=== PATIENT | female | born 1990 | race Caucasian/White ===

== ENCOUNTER 2016-11-19 06:54 | Inpatient (IN) | payer SELFPAY ==
[2016-11-19] MEDS ORDERED: Nalbuphine 20 MG/1 ML Amp IVPUSH PRN (07:04)
[2016-11-19] MEDS ORDERED: Sodium Chloride 0.9% 10 ML Syringe FLUSH PRN (07:04)
[2016-11-19] MEDS ORDERED: Ondansetron 4 MG/2 ML SDV IVPUSH PRN (07:04)
--- NOTE | 2016-11-19 07:08 | PCM.LDHP ---
L&D History of Present Illness - General Date of Service: 11/19/16 Admit Problem/Dx: Patient Status Order with Admit Dx/Problem 11/19/16 07:05 Patient Status [ADT] Routine Admission Diagnosis/Problem Admission Diagnosis/Problem Normal Source of Information: Patient History Limitations: Reports: No Limitations - History of Present Illness Introduction:: Patient is a 26-year-old at 39-4/7 weeks gestation who presents for planned induction of labor. She was doing well today. No concerns or complaints. Getting good movement from baby. - Related Data Allergies/Adverse Reactions: Allergies Allergy/AdvReac Type Severity Reaction Status Date / Time sulfamethoxazole Allergy Hives Verified 11/19/16 07:46 [From ] trimethoprim [From ] Allergy Hives Verified 11/19/16 07:46 Past Medical History [employer] History: Reports: , Spontaneous : 6 Para: 3 LMP (Approximate): - Past Surgical History Endocrine Surgical History: Reports: Thyroid Biopsy Social & Family History - Tobacco Use Smoking Status *Q: Never Smoker - Alcohol Use Alcohol Use History: No - Recreational Drug Use Recreational Drug Use: No H&P Review of Systems - Review of Systems: Review Of Systems: See Below General: Reports: No Symptoms Pulmonary: Reports: No Symptoms Cardiovascular: Reports: No Symptoms Gastrointestinal: Reports: No Symptoms Genitourinary: Reports: No Symptoms Musculoskeletal: Reports: No Symptoms Neurological: Reports: No Symptoms L&D Exam - Exam Exam: See Below - OB Specific Contraction Intensity: Irritability Movement: Active Heart Tones: Present Heart Tones per Min: 145 Heart Rate (FHR) Variability: Moderate (6-25 bmp) Presentation: Vertex - Spencer Score Spencer Score Cervix Position: Midposition Spencer Score Consistency: Soft Spencer Score Effacement: 31-50% Spencer Score Dilation: 3-4 cm Spencer Score 's Station: -2 Spencer Score Total: 7 - Exam General: Alert, Oriented, Cooperative Lungs: Clear to Auscultation, Normal Respiratory Effort Cardiovascular: Regular Rate, Regular Rhythm GI/Abdominal Exam: Soft, Non-Tender Genitourinary: Normal external exam Extremities: Normal Inspection Skin: Warm, Dry, Intact - Patient Data Result Diagrams: 11/19/16 07:19 - Problem List (1) 39 weeks gestation of SNOMED Code(s): 08757230 ICD Code: Z3A.39 - 39 WEEKS GESTATION OF Status: Acute Current Visit: Yes (2) Elective induction of labor planned SNOMED Code(s): 310830006 ICD Code: CSO0082 - Status: Acute Current Visit: Yes (3) GBS (group B Streptococcus carrier), +RV culture, currently SNOMED Code(s): 39729402, 334179591 ICD Code: O99.820 - STREPTOCOCCUS B CARRIER STATE COMPLICATING Status: Acute Current Visit: Yes Problem List Initiated/Reviewed/Updated: Yes Orders Last 24hrs: Active Orders 24 hr Category Date Time Status Patient Status [ADT] Routine ADT 11/19/16 07:05 Ordered Activity as Tolerated [RC] PFP Care 11/19/16 07:05 Ordered Communication Order [RC] ASDIRECTED Care 11/19/16 07:05 Ordered Heart Tones [RC] ASDIRECTED Care 11/19/16 07:05 Ordered Notify Provider [RC] PFP Care 11/19/16 07:05 Ordered Notify Provider [RC] PRN Care 11/19/16 07:05 Ordered Peripheral IV Care [RC] . DIRECTED Care 11/19/16 07:05 Ordered Vital Signs [RC] PER UNIT ROUTINE Care 11/19/16 07:05 Ordered Regular Diet [DIET] Diet 11/19/16 Breakfast Ordered CBC W/O DIFF,HEMOGRAM [HEME] Routine Lab 11/19/16 07:04 Ordered TYPE AND SCREEN [BBK] Routine Lab 11/19/16 07:04 Ordered Ampicillin 1 gm Med 11/19/16 07:15 Ordered Sodium Chloride 0.9% [Normal Saline] 100 ml IV Q4H Ampicillin 2 gm Med 11/19/16 07:04 Ordered Sodium Chloride 0.9% [Normal Saline] 100 ml IV ONETIME Lactated Ringers [Ringers, Lactated] 1,000 ml Med 11/19/16 07:15 Ordered IV ASDIRECTED Nalbuphine [Nubain] Med 11/19/16 07:04 Ordered 10 mg IVPUSH Q2H PRN Ondansetron [Zofran] Med 11/19/16 07:04 Ordered 4 mg IVPUSH Q4H PRN Oxytocin/Lactated Ringers [Pitocin in LR 10 Units/1,000 Med 11/19/16 07:15 Ordered ML] 10 unit in 1,000 ml IV .CONTINUOUS Oxytocin/Lactated Ringers [Pitocin in LR 10 Units/1,000 Med 11/19/16 07:15 Ordered ML] 10 unit in 1,000 ml IV TITRATE Sodium Chloride 0.9% [Saline Flush] Med 11/19/16 07:04 Ordered 10 ml FLUSH ASDIRECTED PRN Electronic Heart Tones Ext w TOCO [WOMSER] Ot 11/19/16 07:05 Ordered Routine Electronic Heart Tones Internal [WOMSER] Per Unit Ot 11/19/16 07:05 Ordered Routine Peripheral IV Insertion Adult [OM.PC] Routine Ot 11/19/16 07:05 Ordered Resuscitation Status Routine Resus Stat 11/19/16 07:04 Ordered Medication Orders Ampicillin Sodium 2 gm/ Sodium (Chloride) 100 mls @ 200 mls/hr IV ONETIME ONE Stop: 11/19/16 07:33 Ampicillin Sodium 1 gm/ Sodium (Chloride) 100 mls @ 200 mls/hr IV Q4H KOREY Lactated Ringer's (Ringers, Lactated) 1,000 mls @ 40 mls/hr IV ASDIRECTED KOREY Nalbuphine HCl (Nubain) 10 mg IVPUSH Q2H PRN PRN Reason: Pain (moderate 4-6) Assessment/Plan Comment:: 26-year-old at 39-4/7 weeks gestation presents for elective induction of labor * CBC and type and screen * GBS positive, will start ampicillin * Pitocin for induction and eventually AROM * Desires epidural for pain control * Anticipate
[2016-11-19] MEDS ORDERED: Oxytocin/Lactated Ringers 10 UNIT/1,000 ML BAG IV SCH ×2 (07:15)
[2016-11-19] MEDS ORDERED: Ampicillin 2 GM in Sodium Chloride 0.9% 100 ML IV ONE (08:00)
[2016-11-19] MEDS: Lactated Ringers 1,000 ML IV SCH ×4 (08:22→13:48)
[2016-11-19] MEDS ORDERED: diphenhydrAMINE 50 MG/ML SDV IVPUSH PRN (10:55)
[2016-11-19] MEDS ORDERED: fentaNYL 100 MCG/2 ML SDV EPIDUR PRN (10:55)
[2016-11-19] MEDS ORDERED: ePHEDrine 50 MG/ML SDV IVPUSH PRN (10:55)
[2016-11-19] MEDS ORDERED: Bupivacaine/fentaNYL/NS 100 ML Bag EPIDUR SCH (11:00)
--- NOTE | 2016-11-19 11:29 | PCM.PREANE ---
Preanesthetic Assessment - Anesthesia/Transfusion/Family Hx Anesthesia History: Prior Anesthesia Without Reaction Family History of Anesthesia Reaction: No Transfusion History: No Prior Transfusion(s) - Review of Systems General: No Symptoms Pulmonary: No Symptoms Cardiovascular: No Symptoms Gastrointestinal: No Symptoms Neurological: No Symptoms Other: Reports: None - Physical Assessment Pulse: 79 O2 Sat by Pulse Oximetry: 97 Respiratory Rate: 16 Blood Pressure: 111/79 Temperature: 36.8 C Vital Signs: Last Vital Signs Temp 36.7 C 11/19/16 07:45 Pulse 97 11/19/16 07:45 Resp 16 11/19/16 07:45 BP 109/71 11/19/16 07:45 Pulse Ox 97 11/19/16 07:45 Height: 1.7 m Weight: 89.584 kg ASA Class: 2 Mental Status: Alert & Oriented x3 Airway Class: Mallampati = 1 Dentition: Reports: Normal Dentition Thyro-Mental Finger Breadths: 3 Mouth Opening Finger Breadths: 3 ROM/Head Extension: Full Lungs: Clear to Auscultation, Normal Respiratory Effort Cardiovascular: Regular Rate, Regular Rhythm, No Murmurs - Lab Values: Laboratory Last Values WBC 8.90 K/mm3 (3.98-10.04) 11/19/16 07:19 RBC 3.95 M/mm3 (3.98-5.22) L 11/19/16 07:19 Hgb 11.2 gm/L (11.2-15.7) 11/19/16 07:19 Hct 34.2 % (34.1-44.9) 11/19/16 07:19 MCV 86.6 fl (79.4-94.8) 11/19/16 07:19 MCH 28.4 pg (25.6-32.2) 11/19/16 07:19 MCHC 32.7 g/dl (32.2-35.5) 11/19/16 07:19 RDW Std Deviation 43.8 fL (36.4-46.3) 11/19/16 07:19 Plt Count 158 K/mm3 (182-369) L 11/19/16 07:19 MPV 12.1 fl (9.4-12.3) 11/19/16 07:19 Blood Type A POSITIVE 11/19/16 07:19 Gel Antibody Screen Negative 11/19/16 07:19 - Allergies Allergies/Adverse Reactions: Allergies Allergy/AdvReac Type Severity Reaction Status Date / Time sulfamethoxazole Allergy Hives Verified 11/19/16 07:46 [From ] trimethoprim [From ] Allergy Hives Verified 11/19/16 07:46 - Anesthesia Plan Pre-Op Medication Ordered: None - Acknowledgements Anesthesia Type Planned: Epidural Pt an Appropriate Candidate for the Planned Anesthesia: Yes Alternatives and Risks of Anesthesia Discussed w Pt/Guardian: Yes Pt/Guardian Understands and Agrees with Anesthesia Plan: Yes PreAnesthesia Questionnaire Gastrointestinal History: Reports: [employer]SEM[employer] 1ST SHIFT History: Reports: , Spontaneous Psychiatric History: Reports: Anxiety, Depression - Past Surgical History Endocrine Surgical History: Reports: Thyroid Biopsy - SUBSTANCE USE Smoking Status *Q: Never Smoker Recreational Drug Use History: No - HOME MEDS Home Medications: Home Meds . [No Known Home Meds] 11/19/16 [History] - CURRENT (IN HOUSE) MEDS Current Meds: Current Medications Diphenhydramine HCl (Benadryl) 25 mg IVPUSH Q6H PRN PRN Reason: Itching Ephedrine Sulfate (Ephedrine Sulfate) 5 mg IVPUSH ASDIRECTED PRN PRN Reason: HYPOTENTSION Fentanyl (Sublimaze) 100 mcg EPIDUR Q3H PRN PRN Reason: PAIN Last Admin: 11/19/16 11:21 Dose: 100 mcg Fentanyl/Bupivacaine HCl (Fentanyl/Bupivacaine/Ns 2 Mcg-0.125% 100 Ml) 100 ml EPIDUR ASDIRECTED KOREY Last Admin: 11/19/16 11:22 Dose: 100 ml Ampicillin Sodium 1 gm/ Sodium (Chloride) 100 mls @ 200 mls/hr IV Q4H KOREY Lactated Ringer's (Ringers, Lactated) 1,000 mls @ 40 mls/hr IV ASDIRECTED KOREY Last Admin: 11/19/16 10:48 Dose: 40 mls/hr Oxytocin/Lactated Ringer's (Pitocin In Lr 10 Units/1,000 Ml) 10 unit in 1,000 mls @ 500 mls/hr IV .CONTINUOUS KOREY Oxytocin/Lactated Ringer's (Pitocin In Lr 10 Units/1,000 Ml) 10 unit in 1,000 mls @ 12 mls/hr IV TITRATE KOREY; 2 MUNITS/MIN PRN Reason: Protocol Last Titration: 11/19/16 09:45 Dose: 6 munits/min, 36 mls/hr Nalbuphine HCl (Nubain) 10 mg IVPUSH Q2H PRN PRN Reason: Pain (moderate 4-6) Ondansetron HCl (Zofran) 4 mg IVPUSH Q4H PRN PRN Reason: Nausea/Vomiting Sodium Chloride (Saline Flush) 10 ml FLUSH ASDIRECTED PRN PRN Reason: Keep Vein Open Discontinued Medications Ampicillin Sodium 2 gm/ Sodium (Chloride) 100 mls @ 200 mls/hr IV ONETIME ONE Stop: 11/19/16 08:29 Last Admin: 11/19/16 08:22 Dose: 200 mls/hr
[2016-11-19] MEDS: Ampicillin 1 GM in Sodium Chloride 0.9% 100 ML IV SCH ×2 (11:54→15:54)
--- NOTE | 2016-11-19 12:06 | PCM.PNLD ---
Labor Progress Note - VS & Meds Vital Signs: Last Vital Signs Temp 36.8 C 11/19/16 11:29 Pulse 79 11/19/16 11:29 Resp 16 11/19/16 11:29 BP 111/79 11/19/16 11:29 Pulse Ox 97 11/19/16 11:29 Active Medications: Current Medications Diphenhydramine HCl (Benadryl) 25 mg IVPUSH Q6H PRN PRN Reason: Itching Ephedrine Sulfate (Ephedrine Sulfate) 5 mg IVPUSH ASDIRECTED PRN PRN Reason: HYPOTENTSION Fentanyl (Sublimaze) 100 mcg EPIDUR Q3H PRN PRN Reason: PAIN Last Admin: 11/19/16 11:21 Dose: 100 mcg Fentanyl/Bupivacaine HCl (Fentanyl/Bupivacaine/Ns 2 Mcg-0.125% 100 Ml) 100 ml EPIDUR ASDIRECTED KOREY Last Admin: 11/19/16 11:22 Dose: 100 ml Ampicillin Sodium 1 gm/ Sodium (Chloride) 100 mls @ 200 mls/hr IV Q4H KOREY Last Admin: 11/19/16 11:54 Dose: 200 mls/hr Lactated Ringer's (Ringers, Lactated) 1,000 mls @ 40 mls/hr IV ASDIRECTED KOREY Last Admin: 11/19/16 11:34 Dose: 999 mls/hr Oxytocin/Lactated Ringer's (Pitocin In Lr 10 Units/1,000 Ml) 10 unit in 1,000 mls @ 500 mls/hr IV .CONTINUOUS KOREY Oxytocin/Lactated Ringer's (Pitocin In Lr 10 Units/1,000 Ml) 10 unit in 1,000 mls @ 12 mls/hr IV TITRATE KOREY; 2 MUNITS/MIN PRN Reason: Protocol Last Titration: 11/19/16 09:45 Dose: 6 munits/min, 36 mls/hr Nalbuphine HCl (Nubain) 10 mg IVPUSH Q2H PRN PRN Reason: Pain (moderate 4-6) Ondansetron HCl (Zofran) 4 mg IVPUSH Q4H PRN PRN Reason: Nausea/Vomiting Sodium Chloride (Saline Flush) 10 ml FLUSH ASDIRECTED PRN PRN Reason: Keep Vein Open Discontinued Medications Ampicillin Sodium 2 gm/ Sodium (Chloride) 100 mls @ 200 mls/hr IV ONETIME ONE Stop: 11/19/16 08:29 Last Admin: 11/19/16 08:22 Dose: 200 mls/hr - Uterine Contractions Uterine Monitoring Mode: External [place] Contraction Intensity: Moderate - Monitoring Monitor Mode: External Ultrasound Heart Rate (FHR) Baseline: 135 Heart Rate (FHR) Variability: Moderate (6-25 bmp) Accelerations: Present, 15x15 Decelerations: None Strip Review: Category I - Vaginal Exam Dilation (cm): 4-5 Effacement (Percent): 50 Station: -2 Cervical Position: Midposition - Labor Progress (Free Text) Labor Progress: Patient doing well. Comfortable with epidural. Pitocin at 8. 2nd antibiotic just hung. AROM performed with release of clear fluid. Continue present management.
--- NOTE | 2016-11-19 17:28 | PCM.DEL ---
L & D Note - General Info Date of Service: 11/19/16 - Delivery Note Labor: Induced by ARM, Induced by Oxytocin Delivery Outcome: Livebirth Infant Delivery Method: Spontaneous Vaginal Delivery Infant Delivery Mode: Spontaneous Presentation: Right Occiput Anterior (CHANTEL) Nuchal Cord: Present (x2), Reduced Anesthesia Type: Epidural Amniotic Fluid Description: Clear Episiotomy Type: None Laceration: None Placenta: Intact, Spontaneous Cord: 3 Vessels Estimated Blood Loss: 250 Resuscitation Needed: Yes : Bulb Syringe, Stimulated, Warmed, [place] Used, Warmer Used Score 1 min: 8 Score 5 min: 9 Delivery Comments (Free Text/Narrative):: Patient found to be complete and began pushing. With maternal pushing effort head delivered from CHANTEL presentation. Nuchal cord present x2 and reduced. With gentle downward traction the shoulders and body delivered. placed on maternal abdomen. Cord clamped and cut. Cord blood obtained. Placenta allowed time to separate and then spontaneously expelled. Inspection of the perineum showed no lacerations - Patient Data Vitals - Most Recent: Last Vital Signs Temp 36.8 C 11/19/16 11:29 Pulse 79 11/19/16 11:29 Resp 16 11/19/16 11:29 BP 111/79 11/19/16 11:29 Pulse Ox 97 11/19/16 11:29 Weight - Most Recent: 89.584 kg Lab Results Last 24 Hours: Laboratory Results - last 24 hr 11/19/16 11/19/16 Range/Units 07:19 07:19 WBC 8.90 (3.98-10.04) K/mm3 RBC 3.95 L (3.98-5.22) M/mm3 Hgb 11.2 (11.2-15.7) gm/L Hct 34.2 (34.1-44.9) % MCV 86.6 (79.4-94.8) fl MCH 28.4 (25.6-32.2) pg MCHC 32.7 (32.2-35.5) g/dl RDW Std Deviation 43.8 (36.4-46.3) fL Plt Count 158 L (182-369) K/mm3 MPV 12.1 (9.4-12.3) fl Blood Type A POSITIVE Gel Antibody Screen Negative Med Orders - Current: Current Medications Diphenhydramine HCl (Benadryl) 25 mg IVPUSH Q6H PRN PRN Reason: Itching Ephedrine Sulfate (Ephedrine Sulfate) 5 mg IVPUSH ASDIRECTED PRN PRN Reason: HYPOTENTSION Fentanyl (Sublimaze) 100 mcg EPIDUR Q3H PRN PRN Reason: PAIN Last Admin: 11/19/16 11:21 Dose: 100 mcg Fentanyl/Bupivacaine HCl (Fentanyl/Bupivacaine/Ns 2 Mcg-0.125% 100 Ml) 100 ml EPIDUR ASDIRECTED KOREY Last Admin: 11/19/16 11:22 Dose: 100 ml Ampicillin Sodium 1 gm/ Sodium (Chloride) 100 mls @ 200 mls/hr IV Q4H KOREY Last Admin: 11/19/16 15:54 Dose: 200 mls/hr Lactated Ringer's (Ringers, Lactated) 1,000 mls @ 40 mls/hr IV ASDIRECTED KOREY Last Admin: 11/19/16 13:48 Dose: 999 mls/hr Oxytocin/Lactated Ringer's (Pitocin In Lr 10 Units/1,000 Ml) 10 unit in 1,000 mls @ 500 mls/hr IV .CONTINUOUS KOREY Oxytocin/Lactated Ringer's (Pitocin In Lr 10 Units/1,000 Ml) 10 unit in 1,000 mls @ 12 mls/hr IV TITRATE KOREY; 2 MUNITS/MIN PRN Reason: Protocol Last Titration: 11/19/16 14:45 Dose: 10 munits/min, 60 mls/hr Nalbuphine HCl (Nubain) 10 mg IVPUSH Q2H PRN PRN Reason: Pain (moderate 4-6) Ondansetron HCl (Zofran) 4 mg IVPUSH Q4H PRN PRN Reason: Nausea/Vomiting Last Admin: 11/19/16 12:45 Dose: 4 mg Sodium Chloride (Saline Flush) 10 ml FLUSH ASDIRECTED PRN PRN Reason: Keep Vein Open Discontinued Medications Ampicillin Sodium 2 gm/ Sodium (Chloride) 100 mls @ 200 mls/hr IV ONETIME ONE Stop: 11/19/16 08:29 Last Admin: 11/19/16 08:22 Dose: 200 mls/hr - Problem List & Annotations (1) 39 weeks gestation of SNOMED Code(s): 52164202 Code(s): Z3A.39 - 39 WEEKS GESTATION OF Status: Acute Current Visit: Yes (2) Elective induction of labor planned SNOMED Code(s): 104172773 Code(s): NOW0446 - Status: Acute Current Visit: Yes (3) GBS (group B Streptococcus carrier), +RV culture, currently SNOMED Code(s): 97886162, 128819774 Code(s): O99.820 - STREPTOCOCCUS B CARRIER STATE COMPLICATING Status: Acute Current Visit: Yes (4) Vaginal delivery SNOMED Code(s): 831048277 Code(s): O80 - ENCOUNTER FOR FULL-TERM UNCOMPLICATED DELIVERY Status: Acute Current Visit: Yes - Problem List Review Problem List Initiated/Reviewed/Updated: Yes - My Orders Last 24 Hours: My Active Orders 11/19/16 07:04 Nalbuphine [Nubain] 10 mg IVPUSH Q2H PRN Ondansetron [Zofran] 4 mg IVPUSH Q4H PRN Sodium Chloride 0.9% [Saline Flush] 10 ml FLUSH ASDIRECTED PRN Resuscitation Status Routine 11/19/16 07:05 Patient Status [ADT] Routine Activity as Tolerated [RC] PFP Communication Order [RC] ASDIRECTED Heart Tones [RC] ASDIRECTED Notify Provider [RC] PFP Notify Provider [RC] PRN Peripheral IV Care [RC] . DIRECTED Vital Signs [RC] PER UNIT ROUTINE Electronic Heart Tones Ext w TOCO [WOMSER] Routine Electronic Heart Tones Internal [WOMSER] Per Unit Routine Peripheral IV Insertion Adult [OM.PC] Routine 11/19/16 07:15 Lactated Ringers [Ringers, Lactated] 1,000 ml IV ASDIRECTED Oxytocin/Lactated Ringers [Pitocin in LR 10 Units/1,000 ML] 10 unit in 1,000 ml IV .CONTINUOUS Oxytocin/Lactated Ringers [Pitocin in LR 10 Units/1,000 ML] 10 unit in 1,000 ml IV TITRATE 11/19/16 07:19 PATIENT RETYPE [BBK] Routine TYPE AND SCREEN [BBK] Routine 11/19/16 12:00 Ampicillin 1 gm Sodium Chloride 0.9% [Normal Saline] 100 ml IV Q4H 11/19/16 Breakfast Regular Diet [DIET] - Assessment Assessment:: 26-year-old G6 now P3124 PPD#0 from at 39-4/7 weeks gestation - Plan Plan:: * Routine cares * Encourage breast feeding * Discharge home in 1-2 days
[2016-11-19] MEDS ORDERED: Lanolin 100% Cream 7 GM Tube TOP PRN (17:46)
[2016-11-19] MEDS ORDERED: Acetaminophen 325 MG Tab PO PRN (17:46)
[2016-11-19] MEDS ORDERED: Witch Hazel Medicated Pads 100/Jar TOP PRN (17:46)
[2016-11-19] MEDS ORDERED: Docusate Sodium 100 MG Cap PO PRN (17:46)
[2016-11-19] MEDS ORDERED: Benzocaine/Menthol 20%-0.5% Spray 56 GM Canister TOP PRN (17:46)
[2016-11-19] MEDS: Ibuprofen 600 MG Tab PO PRN (18:48)
[2016-11-19] MEDS: Sertraline 50 MG Tab PO SCH (21:03)
[2016-11-19] MEDS ORDERED: Bupivacaine 0.25% 10 ML SDV ONE (22:22)
[2016-11-20] MEDS: Ibuprofen 600 MG Tab PO PRN ×2 (01:00→08:18)
--- NOTE | 2016-11-20 03:31 | PCM.DCSUM1 ---
Discharge Summary - Discharge Data Discharge Date: 11/20/16 Discharge Disposition: Home, Self-Care 01 Condition: Good - Discharge Diagnosis/Problem(s) (1) 39 weeks gestation of SNOMED Code(s): 64798782 ICD Code: Z3A.39 - 39 WEEKS GESTATION OF Status: Acute Current Visit: Yes (2) Elective induction of labor planned SNOMED Code(s): 474018551 ICD Code: GLO8811 - Status: Acute Current Visit: Yes (3) GBS (group B Streptococcus carrier), +RV culture, currently SNOMED Code(s): 89320198, 055113565 ICD Code: O99.820 - STREPTOCOCCUS B CARRIER STATE COMPLICATING Status: Acute Current Visit: Yes (4) Vaginal delivery SNOMED Code(s): 584422407 ICD Code: O80 - ENCOUNTER FOR FULL-TERM UNCOMPLICATED DELIVERY Status: Acute Current Visit: Yes - Patient Summary/Data Complications: None Consults: None Recommended Follow-up Testing/Procedures: Follow up with Dr. Murray in 5-6 weeks. Hospital Course: 26 y/o at 39 4/7 wks who presented for elective IOL. This was done with pitocin and eventual AROM. She progressed well to complete dilation and underwent an uncomplicated . See delivery note for full details. she did well and was meeting all goals by PPD#1. She requested discharge home and the was felt to be reasonable. - Patient Instructions Diet: Regular Diet as Tolerated Activity: As Tolerated Activity, Other: Pelvic Rest for 6 weeks Driving: May Drive Today Showering/Bathing: May Shower Showering/Bathing, Other: May Bathe Notify Provider of: Fever, Increased Pain, Swelling and Redness, Drainage, Nausea and/or Vomiting - Discharge Plan Home Medications: Home Meds Docusate Sodium [Colace] 100 mg PO BID PRN cap 11/20/16 [Rx] Ibuprofen [IJD: Ibuprofen] 600 mg PO Q6H PRN tablet 11/20/16 [Rx] Sertraline [Zoloft] 50 mg PO BEDTIME tablet 11/20/16 [Rx] Patient Handouts: Mastitis, [id number], Breast Pumping Tips, Depression and Baby Blues, Home Care Instructions for Mom, Breast Engorgement Referrals: Yaneth Murray MD [Physician] - (5-6 weeks for check ) - Discharge Summary/Plan Comment DC Time >30 min.: No - Patient Data Vitals - Most Recent: Last Vital Signs Temp 36.2 C 11/19/16 20:25 Pulse 84 11/19/16 20:25 Resp 15 11/19/16 20:25 BP 104/60 11/19/16 20:25 Pulse Ox 99 11/19/16 20:25 Weight - Most Recent: 89.584 kg I&O - Last 24 hours: Intake & Output 11/19/16 11/19/16 11/20/16 14:59 22:59 06:59 Intake Total 5200 Balance 5200 Lab Results - Last 24 hrs: Laboratory Results - last 24 hr 11/19/16 11/19/16 Range/Units 07:19 07:19 WBC 8.90 (3.98-10.04) K/mm3 RBC 3.95 L (3.98-5.22) M/mm3 Hgb 11.2 (11.2-15.7) gm/L Hct 34.2 (34.1-44.9) % MCV 86.6 (79.4-94.8) fl MCH 28.4 (25.6-32.2) pg MCHC 32.7 (32.2-35.5) g/dl RDW Std Deviation 43.8 (36.4-46.3) fL Plt Count 158 L (182-369) K/mm3 MPV 12.1 (9.4-12.3) fl Blood Type A POSITIVE Gel Antibody Screen Negative Med Orders - Current: Current Medications Acetaminophen (Tylenol) 650 mg PO Q4H PRN PRN Reason: mild pain or fever Benzocaine/Menthol (Dermoplast Pain Relief [place]) 0 gm TOP ASDIRECTED PRN PRN Reason: Perineal Comfort Measure Docusate Sodium (Colace) 100 mg PO BID PRN PRN Reason: Constipation Emollient Ointment (Lansinoh Hpa) 0 gm TOP ASDIRECTED PRN PRN Reason: Sore Nipples Ibuprofen (Motrin) 600 mg PO Q6H PRN PRN Reason: Mild pain or fever Last Admin: 11/20/16 01:00 Dose: 600 mg Sertraline HCl (Zoloft) 50 mg PO BEDTIME KOREY Last Admin: 11/19/16 21:03 Dose: Not Given Shawanda Collins (Tucks) 1 pad TOP ASDIRECTED PRN PRN Reason: Hemorrhoid pain Discontinued Medications Diphenhydramine HCl (Benadryl) 25 mg IVPUSH Q6H PRN PRN Reason: Itching Ephedrine Sulfate (Ephedrine Sulfate) 5 mg IVPUSH ASDIRECTED PRN PRN Reason: HYPOTENTSION Fentanyl (Sublimaze) 100 mcg EPIDUR Q3H PRN PRN Reason: PAIN Last Admin: 11/19/16 11:21 Dose: 100 mcg Fentanyl/Bupivacaine HCl (Fentanyl/Bupivacaine/Ns 2 Mcg-0.125% 100 Ml) 100 ml EPIDUR ASDIRECTED KOREY Last Admin: 11/19/16 11:22 Dose: 100 ml Ampicillin Sodium 2 gm/ Sodium (Chloride) 100 mls @ 200 mls/hr IV ONETIME ONE Stop: 11/19/16 08:29 Last Admin: 11/19/16 08:22 Dose: 200 mls/hr Ampicillin Sodium 1 gm/ Sodium (Chloride) 100 mls @ 200 mls/hr IV Q4H KOREY Last Admin: 11/19/16 15:54 Dose: 200 mls/hr Lactated Ringer's (Ringers, Lactated) 1,000 mls @ 40 mls/hr IV ASDIRECTED KOREY Last Admin: 11/19/16 13:48 Dose: 999 mls/hr Oxytocin/Lactated Ringer's (Pitocin In Lr 10 Units/1,000 Ml) 10 unit in 1,000 mls @ 500 mls/hr IV .CONTINUOUS KOREY Oxytocin/Lactated Ringer's (Pitocin In Lr 10 Units/1,000 Ml) 10 unit in 1,000 mls @ 12 mls/hr IV TITRATE KOREY; 2 MUNITS/MIN PRN Reason: Protocol Last Titration: 11/19/16 14:45 Dose: 10 munits/min, 60 mls/hr Nalbuphine HCl (Nubain) 10 mg IVPUSH Q2H PRN PRN Reason: Pain (moderate 4-6) Ondansetron HCl (Zofran) 4 mg IVPUSH Q4H PRN PRN Reason: Nausea/Vomiting Last Admin: 11/19/16 12:45 Dose: 4 mg Sodium Chloride (Saline Flush) 10 ml FLUSH ASDIRECTED PRN PRN Reason: Keep Vein Open *Q Meaningful Use (DIS) - VTE *Q VTE Criteria *Q: - Stroke *Q Stroke Criteria *Q: - AMI *Q AMI Criteria *Q:
--- NOTE | 2016-11-20 03:31 | PCM.PNPP ---
- General Info Date of Service: 11/20/16 Functional Status: Reports: Pain Controlled, Tolerating Diet, Ambulating, Urinating - Review of Systems General: Reports: No Symptoms Pulmonary: Reports: No Symptoms Cardiovascular: Reports: No Symptoms Gastrointestinal: Reports: No Symptoms Genitourinary: Reports: No Symptoms - Patient Data Vital Signs - Most Recent: Last Vital Signs Temp 36.2 C 11/19/16 20:25 Pulse 84 11/19/16 20:25 Resp 15 11/19/16 20:25 BP 104/60 11/19/16 20:25 Pulse Ox 99 11/19/16 20:25 Weight - Most Recent: 89.584 kg I&O - Last 24 Hours: Intake & Output 11/19/16 11/19/16 11/20/16 14:59 22:59 06:59 Intake Total 5200 Balance 5200 Lab Results - Last 24 Hours: Laboratory Results - last 24 hr 11/19/16 11/19/16 Range/Units 07:19 07:19 WBC 8.90 (3.98-10.04) K/mm3 RBC 3.95 L (3.98-5.22) M/mm3 Hgb 11.2 (11.2-15.7) gm/L Hct 34.2 (34.1-44.9) % MCV 86.6 (79.4-94.8) fl MCH 28.4 (25.6-32.2) pg MCHC 32.7 (32.2-35.5) g/dl RDW Std Deviation 43.8 (36.4-46.3) fL Plt Count 158 L (182-369) K/mm3 MPV 12.1 (9.4-12.3) fl Blood Type A POSITIVE Gel Antibody Screen Negative Med Orders - Current: Current Medications Acetaminophen (Tylenol) 650 mg PO Q4H PRN PRN Reason: mild pain or fever Benzocaine/Menthol (Dermoplast Pain Relief [place]) 0 gm TOP ASDIRECTED PRN PRN Reason: Perineal Comfort Measure Docusate Sodium (Colace) 100 mg PO BID PRN PRN Reason: Constipation Emollient Ointment (Lansinoh Hpa) 0 gm TOP ASDIRECTED PRN PRN Reason: Sore Nipples Ibuprofen (Motrin) 600 mg PO Q6H PRN PRN Reason: Mild pain or fever Last Admin: 11/20/16 01:00 Dose: 600 mg Sertraline HCl (Zoloft) 50 mg PO BEDTIME KOREY Last Admin: 11/19/16 21:03 Dose: Not Given Izzyabdulaziz Karina (Tucks) 1 pad TOP ASDIRECTED PRN PRN Reason: Hemorrhoid pain Discontinued Medications Diphenhydramine HCl (Benadryl) 25 mg IVPUSH Q6H PRN PRN Reason: Itching Ephedrine Sulfate (Ephedrine Sulfate) 5 mg IVPUSH ASDIRECTED PRN PRN Reason: HYPOTENTSION Fentanyl (Sublimaze) 100 mcg EPIDUR Q3H PRN PRN Reason: PAIN Last Admin: 11/19/16 11:21 Dose: 100 mcg Fentanyl/Bupivacaine HCl (Fentanyl/Bupivacaine/Ns 2 Mcg-0.125% 100 Ml) 100 ml EPIDUR ASDIRECTED KOREY Last Admin: 11/19/16 11:22 Dose: 100 ml Ampicillin Sodium 2 gm/ Sodium (Chloride) 100 mls @ 200 mls/hr IV ONETIME ONE Stop: 11/19/16 08:29 Last Admin: 11/19/16 08:22 Dose: 200 mls/hr Ampicillin Sodium 1 gm/ Sodium (Chloride) 100 mls @ 200 mls/hr IV Q4H KOREY Last Admin: 11/19/16 15:54 Dose: 200 mls/hr Lactated Ringer's (Ringers, Lactated) 1,000 mls @ 40 mls/hr IV ASDIRECTED KOREY Last Admin: 11/19/16 13:48 Dose: 999 mls/hr Oxytocin/Lactated Ringer's (Pitocin In Lr 10 Units/1,000 Ml) 10 unit in 1,000 mls @ 500 mls/hr IV .CONTINUOUS KOREY Oxytocin/Lactated Ringer's (Pitocin In Lr 10 Units/1,000 Ml) 10 unit in 1,000 mls @ 12 mls/hr IV TITRATE KOREY; 2 MUNITS/MIN PRN Reason: Protocol Last Titration: 11/19/16 14:45 Dose: 10 munits/min, 60 mls/hr Nalbuphine HCl (Nubain) 10 mg IVPUSH Q2H PRN PRN Reason: Pain (moderate 4-6) Ondansetron HCl (Zofran) 4 mg IVPUSH Q4H PRN PRN Reason: Nausea/Vomiting Last Admin: 11/19/16 12:45 Dose: 4 mg Sodium Chloride (Saline Flush) 10 ml FLUSH ASDIRECTED PRN PRN Reason: Keep Vein Open - Infant Interaction Infant Disposition, : [facility] in Room with Family Interaction: Holding Infant Feeding: Attempted ; Nursed Fair/Poor Support Person: - Recovery Exam Fundal Tone: Firm Fundal Level: At Umbilicus Fundal Placement: Midline Lochia Amount: Small Lochia Color: Rubra/Red Perineum Description: Edematous Bladder Status: Voiding - Exam General: Alert, Oriented, Cooperative GI/Abdominal Exam: Soft, Non-Tender Extremities: Normal Inspection Skin: Warm, Dry, Intact - Problem List & Annotations (1) 39 weeks gestation of SNOMED Code(s): 27405895 Code(s): Z3A.39 - 39 WEEKS GESTATION OF Status: Acute Current Visit: Yes (2) Elective induction of labor planned SNOMED Code(s): 503655677 Code(s): KZK6304 - Status: Acute Current Visit: Yes (3) GBS (group B Streptococcus carrier), +RV culture, currently SNOMED Code(s): 35161737, 437974772 Code(s): O99.820 - STREPTOCOCCUS B CARRIER STATE COMPLICATING Status: Acute Current Visit: Yes (4) Vaginal delivery SNOMED Code(s): 505317033 Code(s): O80 - ENCOUNTER FOR FULL-TERM UNCOMPLICATED DELIVERY Status: Acute Current Visit: Yes - Problem List Review Problem List Initiated/Reviewed/Updated: Yes - My Orders Last 24 Hours: My Active Orders 11/19/16 07:04 Resuscitation Status Routine 11/19/16 07:05 Heart Tones [RC] ASDIRECTED Peripheral IV Care [RC] . DIRECTED Vital Signs [RC] PER UNIT ROUTINE 11/19/16 17:46 Activity as Tolerated [RC] PER UNIT ROUTINE Vital Signs [RC] 20,04,12 Acetaminophen [Tylenol] 650 mg PO Q4H PRN Benzocaine/Menthol [Dermoplast Pain Relief [place]] See Dose Instructions TOP ASDIRECTED PRN Docusate Sodium [Colace] 100 mg PO BID PRN Ibuprofen [Motrin] 600 mg PO Q6H PRN Lanolin [Lansinoh HPA] See Dose Instructions TOP ASDIRECTED PRN Shawanda Collins [Tucks] 1 pad TOP ASDIRECTED PRN Assess Lochia [WOMSER] Per Unit Routine Assess Uterine Involution [WOMSER] Per Unit Routine Breast Pump [WOMSER] Per Unit Routine Heat Therapy [OM.PC] PRN Ice Therapy [OM.PC] Per Unit Routine Perineal Care [OM.PC] Per Unit Routine Peripheral IV Discontinue [OM.PC] Routine Sitz Bath [OM.PC] Per Unit Routine 11/19/16 19:45 Sertraline [Zoloft] 50 mg PO BEDTIME 11/19/16 Dinner Regular Diet [DIET] 11/20/16 17:46 Heat Therapy [OM.PC] PRN - Assessment Assessment:: 26-year-old G6 now P3124 PPD#1 from at 39-4/7 weeks gestation - Plan Plan:: * Routine cares * Encourage breast feeding * Discharge home tomorrow
--- NOTE | 2016-11-20 08:59 | PCM48HPAN ---
Post Anesthesia Note - EVALUATION WITHIN 48HRS OF ANESTHETIC Vital Signs in Normal Range: Yes Patient Participated in Evaluation: Yes Respiratory Function Stable: Yes Airway Patent: Yes Cardiovascular Function Stable: Yes Hydration Status Stable: Yes Pain Control Satisfactory: Yes Nausea and Vomiting Control Satisfactory: Yes Mental Status Recovered: Yes - COMMENTS/OBSERVATIONS Free Text/Narrative:: Patient denied any headache or residual numbness/tingling to lower extremities. Patient did state she was having some back pain. Patient educated to alternate with cold and heat packs to affected area. Also patient can take tylenol to help alleviate pain. Educated patient that back pain may persist for up to 2 months but usually is gone in a week or 2.
[2016-11-20 15:38] VITALS: BP 111/62
[2016-11-20] MEDS ORDERED: Measles, Mumps & Rubella Vaccine 0.5 ML SDV SUBCUT ONE (17:46)
== END 2016-11-20 19:20 | disposition home or self-care (01) | DRG 560 ==
LOC: JD.OB 06:54 → OBSVTOIN 16:26
PROVIDERS: ADMIT Obstetrics & Gynecology; ATTEND Obstetrics & Gynecology
PROC: 10E0XZZ Delivery of Products of Conception, External Approach (ICD-10-PCS; principal; 2016-11-19)
PROC: 3E033VJ Introduction of Other Hormone into Peripheral Vein, Percutaneous Approach (ICD-10-PCS; 2016-11-19)
PROC: 10907ZC Drainage of Amniotic Fluid, Therapeutic from Products of Conception, Via Natural or Artificial Opening (ICD-10-PCS; 2016-11-19)
PROC: 00HU33Z Insertion of Infusion Device into Spinal Canal, Percutaneous Approach (ICD-10-PCS; 2016-11-19)
PROC: 3E0R3CZ (ICD-10-PCS; 2016-11-19)
DX: O99.824 Streptococcus B carrier state complicating childbirth (principal); O69.81X0 Labor and delivery complicated by cord around neck, without compression, not applicable or unspecified; Z3A.40 40 weeks gestation of pregnancy; Z37.0 Single live birth; Z88.2 Allergy status to sulfonamides; Z88.8 Allergy status to other drugs, medicaments and biological substances
CPT/HCPCS: 36415; 85027; 86850; 86900; 86901; 90707; A9270-GY; J0290; J2405; J2590; J3010; J7030; J7120

== ENCOUNTER 2022-09-09 07:53 | Emergency (ER) | payer SELFPAY ==
[2022-09-09 08:31] VITALS: BP 117/79; PULSE 59
== END 2022-09-09 08:33 | disposition home or self-care (01) ==
LOC: JD.ED 07:53
DX: K04.7 Periapical abscess without sinus (principal); Z88.1 Allergy status to other antibiotic agents
CPT/HCPCS: 99282; 99283